=== PATIENT | male | born 1940 | race Caucasian/White ===

== ENCOUNTER 2016-07-10 12:19 | Emergency (ER) | payer BC ==
[~2016-07-10] VITALS: Ht 180.3 cm; Wt 79.4 kg
[2016-07-10] MEDS ORDERED: ACETAMINOPHEN 500 MG TAB PO ONE (13:30)
[2016-07-10] MEDS ORDERED: SODIUM CHLORIDE 0.9% 1,000 ML IV ONE (13:45)
[2016-07-10 13:49] LABS: Basophils # (auto) 0 uL; Basophils % (auto) 0.3 % (0.0-2.0); Eosinophils # (auto) 0.3 uL; Eosinophils % (auto) 7.2 % (0.0-7.0); Hematocrit 26.2 % (41.0-53.0); Hemoglobin 9.4 g/dL (13.5-17.5); Lymphocytes # (auto) 0.3 uL; Lymphocytes % (auto) 9.4 % (10.0-50.0); Mean Corpuscular Hemoglobin 33.4 pg (28.0-32.0); Mean Corpuscular Hgb Conc. 35.7 g/dL (32.0-36.0); Mean Corpuscular Volume 93.5 fL (80.0-100.0); Mean Platelet Volume 6.6 fL (7.4-10.4); Monocytes # (auto) 0.5 uL; Monocytes % (auto) 13.6 % (0.0-12.0); Neutrophils # (auto) 2.6 uL; Neutrophils % (auto) 69.5 % (37.0-80.0); Platelet Count (auto) 299 10^3/uL (140-450); White Blood Cell 3.7 10^3/uL (4.4-10.8)
[2016-07-10 13:55] LABS: Albumin 3.5 g/dL (3.4-5.0); BUN/Creatinine Ratio 21.3; Potassium 4.7 mmol/L (3.5-5.1)
[2016-07-10 14:03] LABS: Bilirubin, Total 0.4 mg/dL (0.2-1.0); Total Protein 7.3 g/dL (6.4-8.2)
[2016-07-10 16:29] VITALS: BP 150/72
== END 2016-07-10 16:29 | disposition home or self-care (01) ==
LOC: EDBD 12:19 → ER 12:21
DX: S80.12XA Contusion of left lower leg, initial encounter (principal); S30.1XXA Contusion of abdominal wall, initial encounter; S50.02XA Contusion of left elbow, initial encounter; S00.12XA Contusion of left eyelid and periocular area, initial encounter; D64.9 Anemia, unspecified; M32.9 Systemic lupus erythematosus, unspecified; I12.9 Hypertensive chronic kidney disease with stage 1 through stage 4 chronic kidney disease, or unspecified chronic kidney disease; N18.9 Chronic kidney disease, unspecified; E11.22 Type 2 diabetes mellitus with diabetic chronic kidney disease; E78.5 Hyperlipidemia, unspecified; W01.0XXA Fall on same level from slipping, tripping and stumbling without subsequent striking against object, initial encounter; Y93.89 Activity, other specified; Y92.89 Other specified places as the place of occurrence of the external cause; Y99.8 Other external cause status; Z88.0 Allergy status to penicillin; Z90.49 Acquired absence of other specified parts of digestive tract; Z95.1 Presence of aortocoronary bypass graft
CPT/HCPCS: 36415; 71010; 73080; 73502; 73552; 74176; 80053; 84484; 85025; 93005; 96360; 96361; 99285; J7030

== ENCOUNTER 2018-02-12 22:32 | Inpatient (IN) | payer BC, OTHER ==
[~2018-02-12] VITALS: Ht 180.3 cm; Wt 84.0 kg
[~2018-02-12 22:32] MED LIST: ASPI1TAB19 PO; CALC667T2 PO; CAR125T PO; CARB200T4 PO; FERR18TA2 PO; FURO40TA PO; INSUINJ IJ; INSUINJ2 SC; LEV100T PO; MINO10TA2 PO; OMEG300C7 PO; PROCRIT; RAMI2.5C33 PO; ROSU40TA PO
[2018-02-13 00:19] LABS: Basophils # (auto) 0 uL; Basophils % (auto) 0.6 % (0.0-2.0); Eosinophils # (auto) 0.1 uL; Eosinophils % (auto) 3.3 % (0.0-7.0); Hematocrit 24.9 % (41.0-53.0); Hemoglobin 8.5 g/dL (13.5-17.5); Lymphocytes # (auto) 0.1 uL; Lymphocytes % (auto) 4.2 % (10.0-50.0); Mean Corpuscular Hemoglobin 33.5 pg (28.0-32.0); Mean Corpuscular Volume 98.7 fL (80.0-100.0); Monocytes # (auto) 0.5 uL; Monocytes % (auto) 16.4 % (0.0-12.0); Neutrophils # (auto) 2.4 uL; Neutrophils % (auto) 75.5 % (37.0-80.0); Platelet Count (auto) 264 10^3/uL (140-450); Red Blood Cells 2.53 10^6/uL (4.5-5.90); Red Cell Distribution Width 13.2 % (11.8-14.3); White Blood Cell 3.1 10^3/uL (4.4-10.8)
[2018-02-13 00:25] LABS: INR 1.06 (0.9-1.15); Partial Thromboplastin Time 30.1 sec (23.78-33.04); Prothrombin Time 11.3 sec (9.27-12.13)
[2018-02-13 00:28] LABS: Alanine Aminotransferase 33 U/L (16-61); Albumin 3.6 g/dL (3.4-5.0); Anion Gap 12 (5-15); Aspartate Aminotransferase 35 U/L (15-37); BUN/Creatinine Ratio 25.5; Calcium 8.5 mg/dL (8.5-10.1); Carbon Dioxide 24 mmol/L (21-32); Chloride 97 mmol/L (98-107); GFR African American 24 mL/min; GFR Non-African American 20 mL/min; Glucose 148 mg/dL (74-106); Magnesium 3.4 mg/dL (1.6-2.6); Potassium 3.6 mmol/L (3.5-5.1); Sodium 133 mmol/L (136-145)
[2018-02-13 00:31] LABS: Blood Urea Nitrogen 82 mg/dL (7-18)
[2018-02-13 00:35] LABS: Alkaline Phosphatase 105 U/L (45-117); Bilirubin, Total 0.5 mg/dL (0.2-1.0); Total Protein 7.1 g/dL (6.4-8.2)
[2018-02-13] MEDS ORDERED: ENALAPRILAT 1.25 MG/ML-1ML VIAL IV ONE (01:15)
[2018-02-13] MEDS ORDERED: DEXTROSE (50%) 50ML SYRG IV PRN (03:45)
[2018-02-13] MEDS ORDERED: hydrALAZINE HCL 25 MG TAB PO PRN (03:45)
[2018-02-13] MEDS ORDERED: ACETAMINOPHEN 500 MG TAB PO PRN (03:45)
[2018-02-13] MEDS ORDERED: FUROSEMIDE 40 MG/4 ML VIAL IV ONE ×2 (03:45→15:15)
[2018-02-13] MEDS ORDERED: ONDANSETRON HCL 4 MG/2 ML VIAL IV PRN (03:45)
[2018-02-13 05:07] VITALS: BP 129/60
[2018-02-13] MEDS: LEVOTHYROXINE SODIUM 100 MCG TAB PO SCH (06:59)
[2018-02-13] MEDS: InsuLIN REG 1unit/0.01ml Soln (100units/ml) SC SCH ×4 (07:00→22:00)
[2018-02-13] MEDS: ACCU-CHEK COMFORT CURVE STRIP VI SCH ×4 (07:03→23:01)
[2018-02-13 08:06] LABS: Red Blood Cells 2.25 10^6/uL (4.5-5.90); White Blood Cell 2.3 10^3/uL (4.4-10.8)
[2018-02-13 08:08] LABS: Hematocrit 22.3 % (41.0-53.0); Hemoglobin 7.6 g/dL (13.5-17.5); Mean Corpuscular Hgb Conc. 34.3 g/dL (32.0-36.0); Mean Corpuscular Volume 99.1 fL (80.0-100.0); Platelet Count (auto) 225 10^3/uL (140-450); Red Cell Distribution Width 13.5 % (11.8-14.3)
[2018-02-13 08:21] LABS: Band Neutrophils % (manual) 0; Basophils % (manual) 0 (0.0-2.0); Blast Cells 0; Metamyelocytes % 0; Myelocytes % 0; Promyelocytes % 0; Reactive Lymphocytes 0
[2018-02-13 08:22] LABS: BUN/Creatinine Ratio 24.5; Calcium 8.2 mg/dL (8.5-10.1); Potassium 3.5 mmol/L (3.5-5.1)
[2018-02-13] MEDS: CALCIUM ACETATE 667 MG CAP PO SCH ×3 (08:28→18:13)
[2018-02-13 09:00] VITALS: BP 114/44
[2018-02-13] MEDS ORDERED: FUROSEMIDE 40 MG/4 ML VIAL IV SCH (10:00)
[2018-02-13] MEDS: CARVEDILOL 12.5 MG TAB PO SCH ×2 (10:46→22:00)
[2018-02-13] MEDS: ASPirin-EC 81 mg tab PO SCH (10:46)
[2018-02-13 11:13] LABS: Eosinophils % (manual) 1 (0-7); Lymphocytes % (manual) 9 (10.0-50.0); Monocytes % (manual) 4 (0-12)
[2018-02-13 12:55] VITALS: BP 114/52
[2018-02-13 16:49] VITALS: BP 140/50
[2018-02-13] MEDS: FUROSEMIDE 40 MG/4 ML VIAL IV SCH (18:00)
[2018-02-13 21:18] LABS: Urine Bacteria FEW /hpf (None Seen); Urine Blood Negative /uL (Negative); Urine Hyaline Cast FEW /lpf (0 - 2); Urine Specific Gravity 1.011 (1.001-1.035); Urine WBC <1 /hpf (0 - 3)
[2018-02-13 21:32] LABS: Protein, Urine 42.2 mg/dL (0.0-11.9)
[2018-02-13 22:00] VITALS: BP 148/69
[2018-02-14 05:00] VITALS: BP 124/42
[2018-02-14] MEDS: ACCU-CHEK COMFORT CURVE STRIP VI SCH ×2 (06:37→11:30)
[2018-02-14] MEDS: LEVOTHYROXINE SODIUM 100 MCG TAB PO SCH (06:37)
[2018-02-14] MEDS: FUROSEMIDE 40 MG/4 ML VIAL IV SCH (06:37)
[2018-02-14] MEDS: InsuLIN REG 1unit/0.01ml Soln (100units/ml) SC SCH ×2 (06:38→11:30)
[2018-02-14 06:40] LABS: Hematocrit 25.1 % (41.0-53.0); Hemoglobin 8.6 g/dL (13.5-17.5); Mean Corpuscular Hemoglobin 33.7 pg (28.0-32.0); Mean Corpuscular Hgb Conc. 34.4 g/dL (32.0-36.0); Mean Corpuscular Volume 97.9 fL (80.0-100.0); Platelet Count (auto) 256 10^3/uL (140-450); Red Blood Cells 2.56 10^6/uL (4.5-5.90); Red Cell Distribution Width 13.2 % (11.8-14.3); White Blood Cell 2.2 10^3/uL (4.4-10.8)
[2018-02-14 06:48] LABS: Band Neutrophils % (manual) 0; Basophils % (manual) 0 (0.0-2.0); Blast Cells 0; Metamyelocytes % 0; Myelocytes % 0; Promyelocytes % 0; Reactive Lymphocytes 0
[2018-02-14 06:51] LABS: Potassium 3.5 mmol/L (3.5-5.1)
[2018-02-14 06:58] LABS: BUN/Creatinine Ratio 24.5; Calcium 8.2 mg/dL (8.5-10.1); Phosphorus 4.4 mg/dL (2.5-4.90); Uric Acid 10.3 mg/dL (3.5-7.2)
[2018-02-14 06:59] LABS: % Iron Saturation 24.6 % (20-55)
[2018-02-14 08:23] LABS: Eosinophils % (manual) 10 (0-7); Lymphocytes % (manual) 14 (10.0-50.0); Monocytes % (manual) 19 (0-12)
[2018-02-14 09:20] VITALS: BP 152/65
[2018-02-14] MEDS: CALCIUM ACETATE 667 MG CAP PO SCH ×2 (09:35→12:00)
[2018-02-14] MEDS: ASPirin-EC 81 mg tab PO SCH (09:36)
[2018-02-14] MEDS: CARVEDILOL 12.5 MG TAB PO SCH (09:36)
[2018-02-14 11:59] VITALS: BP 137/62
== END 2018-02-14 12:20 | disposition home or self-care (01) | DRG 682 ==
LOC: ER 22:32 → TELE 02-13 03:39 → WEST WING 02-13 04:31 → TELE-WESTW 02-13 11:58
PROVIDERS: ADMIT Nurse Practitioner Family; ATTEND Internal Medicine Geriatric Medicine
DX: N17.0 Acute kidney failure with tubular necrosis (principal); I50.43 Acute on chronic combined systolic (congestive) and diastolic (congestive) heart failure; I13.2 Hypertensive heart and chronic kidney disease with heart failure and with stage 5 chronic kidney disease, or end stage renal disease; N39.0 Urinary tract infection, site not specified; N18.6 End stage renal disease; E11.22 Type 2 diabetes mellitus with diabetic chronic kidney disease; I25.10 Atherosclerotic heart disease of native coronary artery without angina pectoris; E78.5 Hyperlipidemia, unspecified; D64.9 Anemia, unspecified; I70.0 Atherosclerosis of aorta; Z79.82 Long term (current) use of aspirin; Z82.0 Family history of epilepsy and other diseases of the nervous system; Z83.3 Family history of diabetes mellitus; Z95.1 Presence of aortocoronary bypass graft; Z90.49 Acquired absence of other specified parts of digestive tract
CPT/HCPCS: 36415; 71045; 80048; 80053; 81001; 82570; 82962; 83036; 83540; 83550; 83735; 83880; 84100; 84156; 84300; 84443; 84484; 84550; 85007; 85025; 85027; 85610; 85730; 93005; 94761; 96374; 96375; G0378; J1815

== ENCOUNTER 2018-12-26 12:32 | Inpatient (IN) | payer OTHER ==
[~2018-12-26] VITALS: Ht 180.3 cm; Wt 88.5 kg
[~2018-12-26 12:32] MED LIST changes: +FURO1TAB31 PO; -FURO40TA PO
[2018-12-26 13:00] LABS: Basophils # (auto) 0 uL; Basophils % (auto) 0.3 % (0.0-2.0); Eosinophils # (auto) 0.1 uL; Hematocrit 25.8 % (41.0-53.0); Lymphocytes # (auto) 0.3 uL; Monocytes # (auto) 0.4 uL
[2018-12-26 13:01] LABS: Eosinophils % (auto) 2.1 % (0.0-7.0); Hemoglobin 8.8 g/dL (13.5-17.5); Lymphocytes % (auto) 4.5 % (10.0-50.0); Mean Corpuscular Hemoglobin 35.8 pg (28.0-32.0); Mean Corpuscular Hgb Conc. 34.1 g/dL (32.0-36.0); Mean Corpuscular Volume 104.9 fL (80.0-100.0); Neutrophils # (auto) 5.3 uL; Neutrophils % (auto) 86.1 % (37.0-80.0); Platelet Count (auto) 215 10^3/uL (140-450); Red Blood Cells 2.46 10^6/uL (4.5-5.90); Red Cell Distribution Width 15.1 % (11.8-14.3); White Blood Cell 6.2 10^3/uL (4.4-10.8)
[2018-12-26 13:16] LABS: Albumin 3.3 g/dL (3.4-5.0); Anion Gap 7 (5-15); Blood Urea Nitrogen 32 mg/dL (7-18); Calcium 8.4 mg/dL (8.5-10.1); Carbon Dioxide 28 mmol/L (21-32); Chloride 100 mmol/L (98-107); Glucose 91 mg/dL (74-106); INR 1.13 (0.9-1.15); Partial Thromboplastin Time 34.2 sec (23.64-32.05); Potassium 4.3 mmol/L (3.5-5.1); Sodium 135 mmol/L (136-145)
[2018-12-26 13:22] LABS: Alanine Aminotransferase 29 U/L (16-61); Alkaline Phosphatase 206 U/L (45-117); Aspartate Aminotransferase 45 U/L (15-37); BUN/Creatinine Ratio 8.8; Bilirubin, Total 0.7 mg/dL (0.2-1.0); GFR African American 21 mL/min; GFR Non-African American 17 mL/min; Total Protein 7.7 g/dL (6.4-8.2)
[2018-12-26] MEDS ORDERED: IPRATROPIUM BROM 0.5 MG/2.5ML INH SOL NEB PRN (15:00)
[2018-12-26] MEDS ORDERED: ONDANSETRON HCL 4 MG/2 ML VIAL IV PRN (15:00)
[2018-12-26] MEDS ORDERED: HYDROcodone-ACET 5/325MG TAB PO PRN (15:00)
[2018-12-26] MEDS ORDERED: ACETAMINOPHEN 500 MG TAB PO PRN (15:00)
[2018-12-26] MEDS ORDERED: MORPHINE SULF INJ 2 MG/ML SYRINGE 1ML IV PRN ×2 (15:00)
[2018-12-26] MEDS ORDERED: NITROGLYCERIN 0.4 MG SL TAB SL PRN (15:00)
[2018-12-26] MEDS ORDERED: ALBUTEROL SULF 2.5 MG/0.5ML(0.5%) NEB SOLN NEB PRN (15:00)
[2018-12-26] MEDS ORDERED: DEXTROSE (50%) 50ML SYRG IV PRN (15:00)
[2018-12-26 17:00] VITALS: BP 155/71
[2018-12-26] MEDS: InsuLIN REG 1unit/0.01ml Soln (100units/ml) SC SCH ×2 (17:00→21:41)
[2018-12-26] MEDS: CALCIUM ACETATE 667 MG CAP PO SCH ×2 (18:26→21:41)
[2018-12-26] MEDS: ACCU-CHEK COMFORT CURVE STRIP VI SCH ×2 (18:26→21:41)
--- NOTE | 2018-12-26 18:47 | NUR ---
Telemetry admit from [facility]ICLAUDET[facility] Liza admitted to Telemetry unit after SBAR received. Patient oriented to KIRIT knox RN, unit, room, bed, and unit policies regarding patient care and visiting hours. Patient now on continuous telemetry monitoring, tele box #[id number] and telemetry reading on arrival to unit is SR in the 60's. Patient weighed by bedscale and encouraged to call if they need something. All questions and concerns addressed, patient verbalized understanding. Addendum: 12/26/18 at 1849 by KIRIT CLARK RN Actual time for [id number]
--- NOTE | 2018-12-26 19:15 | NUR ---
PATIENT IS ALERT AND ORIENTED X4, ANSWERS IN COMPLETE SENTENCES AND MAKES APPROPRIATE EYE CONTACT. PATIENT STATES THAT HE WOULD LIKE TO REPLACE THE BAND-AID WHICH WAS PLACED AT HIS DIALYSIS BECAUSE THE BAND-AID HAS BLOOD STAINS. BAND AID REAPPLIED TO SITE. SKIN TEAR TO RIGHT UPPER ARM ALSO RE DRESSED WITH BAND-AID. NO S/SX OF DISTRESS, SOB OR PAIN. WILL CONTINUE TO MONITOR Q1H AND PRN.
[2018-12-26 20:15] VITALS: BP 109/40
[2018-12-26 21:00] VITALS: BP 109/40
[2018-12-27] VITALS (7 sets, daily range): BP systolic 109–145; BP diastolic 40–68
[2018-12-27] MEDS: CALCIUM ACETATE 667 MG CAP PO SCH ×3 (02:24→10:00)
--- NOTE | 2018-12-27 03:59 | NUR ---
[facility]SA SWAB SENT TO LAB
--- NOTE | 2018-12-27 04:15 | NUR ---
PT SEEN RESTING IN BED ON RA, SPO2 92%, BS CLEAR AND DIMINISHED, PRN NEB TX NOT GIVEN AT THIS TIME.
[2018-12-27 05:53] LABS: Basophils # (auto) 0 uL; Eosinophils # (auto) 0.2 uL; Hemoglobin 8.9 g/dL (13.5-17.5); Lymphocytes # (auto) 0.4 uL; Monocytes # (auto) 0.6 uL
[2018-12-27 05:57] LABS: Basophils % (auto) 0.6 % (0.0-2.0); Eosinophils % (auto) 3.3 % (0.0-7.0); Hematocrit 26.2 % (41.0-53.0); Lymphocytes % (auto) 7.4 % (10.0-50.0); Mean Corpuscular Hemoglobin 35.6 pg (28.0-32.0); Mean Corpuscular Hgb Conc. 33.8 g/dL (32.0-36.0); Mean Corpuscular Volume 105.2 fL (80.0-100.0); Monocytes % (auto) 10.8 % (0.0-12.0); Neutrophils # (auto) 4.4 uL; Neutrophils % (auto) 77.9 % (37.0-80.0); Platelet Count (auto) 249 10^3/uL (140-450); Red Blood Cells 2.49 10^6/uL (4.5-5.90); Red Cell Distribution Width 15.5 % (11.8-14.3); White Blood Cell 5.6 10^3/uL (4.4-10.8)
[2018-12-27 06:07] LABS: Albumin 3.4 g/dL (3.4-5.0); BUN/Creatinine Ratio 8.6; Calcium 8.7 mg/dL (8.5-10.1)
[2018-12-27 06:12] LABS: Bilirubin, Total 0.8 mg/dL (0.2-1.0); Total Protein 7.4 g/dL (6.4-8.2)
[2018-12-27] MEDS: ACCU-CHEK COMFORT CURVE STRIP VI SCH (06:37)
[2018-12-27] MEDS: InsuLIN REG 1unit/0.01ml Soln (100units/ml) SC SCH (06:37)
[2018-12-27] MEDS ORDERED: LEVOTHYROXINE SODIUM 100 MCG TAB PO SCH (07:00)
--- NOTE | 2018-12-27 07:05 | NUR ---
PRN MN TX NOT INDICATED AT THIS TIME. PT IS AWAKE, ALERT AND ORIENTED. PT ON RA, 95% O2 SATS, HR 64 BPM, RR18 BPM, SKIN IS DRY AND WARM TO THE TOUCH. RESPIRATION IS EVEN AND REGULAR. NO SCUTE DISTRESS NOTED. PT OBSTRUCTED TO CALL IF MN TX IS INDICATED. PT VERBALIZED UNDERSTANDING.
--- NOTE | 2018-12-27 07:30 | NUR ---
ENDORSED PATIENT CARE TO DAY SHIFT NURSE MANDI GASTON. PATIENT IS RESTING IN BED. NO S/SX OF DISTRESS, SOB OR PAIN. REACTOR KETTLE OPERATOR READS SR 64. BBB AND AV BLOCK. DAY SHIFT NURSE IS AWARE OF ECG CHANGES. UPDATED 12 ECG IS CHARTED IN HARD CHART; HOSPITALIST JANEL AWARE.
[2018-12-27] MEDS ORDERED: FUROSEMIDE 40 MG TAB PO SCH (10:00)
[2018-12-27] MEDS ORDERED: FAMOTIDINE 20 MG TAB PO SCH (10:00)
[2018-12-27] MEDS ORDERED: ASPirin-EC 81 mg tab PO SCH (10:00)
[2018-12-27] MEDS ORDERED: RAMIPRIL 2.5 MG CAP PO SCH (10:00)
[2018-12-27] MEDS ORDERED: Rosuvastatin Calcium (Crestor) 40MG TABLET PO SCH (10:00)
--- NOTE | 2018-12-27 10:45 | NUR ---
WOUND CARE NOTE: Wound care in to see patient per wound care request regarding "skin tear to Rt Upper Arm and Rt. forearm" that are noted present on admission. Bedside nurse took photograph of patient's wounds upon admission for reference. Patient is 78 years old male with admitting diagnosis of CHF. Patient is resting in bed in Rm. 277A. He's awake, alert, and oriented. Patient is ambulatory and self turn and reposition. His José Luis score is 18. He's in no stated pain at this time. Patient's at bedside. Patient noted with ecchymosis, multi dry intact scabs to bilateral arm and large (7x3cm) skin tear to Rt shoulder/arm. Patient and his reported that scabs and skin tears are due to previous fall at home. Wound is red with dry scab at edges, minimal serosanguineous drainage noted, no odor noted. Cleansed wound with NS,patted dry with gauze, applied Thera honey gel and covered with Opti foam gentle dressing. Large intact ecchymosis also noted to patient's R buttock which reported from previous fall also. No pressure injury noted. Patient tolerated well. Patient's and family wound care education given, verbalized understanding. No further wound care monitoring needed at this time. RECOMMENDATION: Dressing change to Rt upper arm/shoulder wound per Md order.
== END 2018-12-27 12:55 | disposition home or self-care (01) | DRG 91 ==
LOC: EDUNIT# 12:32 → EDBD 12:32 → ER 12:32 → TELE 12:33 → TELE-WESTW 16:52
PROVIDERS: ADMIT Nurse Practitioner Acute Care; ATTEND Internal Medicine
DX: R25.2 Cramp and spasm (principal); N18.6 End stage renal disease; I13.2 Hypertensive heart and chronic kidney disease with heart failure and with stage 5 chronic kidney disease, or end stage renal disease; I25.810 Atherosclerosis of coronary artery bypass graft(s) without angina pectoris; I44.0 Atrioventricular block, first degree; E11.51 Type 2 diabetes mellitus with diabetic peripheral angiopathy without gangrene; E11.22 Type 2 diabetes mellitus with diabetic chronic kidney disease; T42.6X5A Adverse effect of other antiepileptic and sedative-hypnotic drugs, initial encounter; D63.8 Anemia in other chronic diseases classified elsewhere; I50.9 Heart failure, unspecified; E78.5 Hyperlipidemia, unspecified; Z99.2 Dependence on renal dialysis; Z79.4 Long term (current) use of insulin; Z79.82 Long term (current) use of aspirin; Z79.899 Other long term (current) drug therapy; Z82.0 Family history of epilepsy and other diseases of the nervous system; Z83.3 Family history of diabetes mellitus; Z95.1 Presence of aortocoronary bypass graft; Z88.0 Allergy status to penicillin; Z90.49 Acquired absence of other specified parts of digestive tract; Y92.89 Other specified places as the place of occurrence of the external cause
CPT/HCPCS: 36415; 71045; 72192; 80053; 82962; 83036; 83880; 84484; 85025; 85610; 85730; 87081; 93005; 93306; 93970; 99291; G0378; J1815

== ENCOUNTER → 2019-06-03 | Emergency (ER) | payer OTHER ==
[~2019-06-03] VITALS: Ht 175.3 cm; Wt 77.1 kg
[~2019-06-03] MED LIST changes: +MORPHINE SULFATE 10 MG/ML INJ 1ML SDV IV ONE; +ONDANSETRON HCL 4 MG/2 ML VIAL IV ONE
[2019-06-03 20:08] LABS: Basophils # (auto) 0.1 10 ^3/uL (0-0.2); Basophils % (auto) 0.7 % (0.0-2.0); Eosinophils # (auto) 0.3 10 ^3/uL (0-0.8); Eosinophils % (auto) 3.8 % (0.0-7.0); Hemoglobin 9.4 g/dL (13.5-17.5); Lymphocytes # (auto) 0.6 10 ^3/uL (0.4-5.4); Lymphocytes % (auto) 8.2 % (10.0-50.0); Mean Corpuscular Hemoglobin 35.1 pg (28.0-32.0); Mean Corpuscular Hgb Conc. 32.5 g/dL (32.0-36.0); Mean Corpuscular Volume 107.7 fL (80.0-100.0); Monocytes # (auto) 0.8 10 ^3/uL (0-1.3); Neutrophils # (auto) 5.4 10 ^3/uL (1.6-8.6); Neutrophils % (auto) 76.3 % (37.0-80.0); Platelet Count (auto) 269 10^3/uL (140-450); Red Blood Cells 2.69 10^6/uL (4.5-5.90); White Blood Cell 7.1 10^3/uL (4.4-10.8)
[2019-06-03 20:24] LABS: Albumin 3.4 g/dL (3.4-5.0); Calcium 8.8 mg/dL (8.5-10.1); Potassium 3.8 mmol/L (3.5-5.1)
[2019-06-03 20:30] LABS: BUN/Creatinine Ratio 8.2; Bilirubin, Total 0.5 mg/dL (0.2-1.0); Total Protein 7.5 g/dL (6.4-8.2)
[2019-06-03 20:37] LABS: INR 1.22 (0.9-1.15); Partial Thromboplastin Time 33.3 sec (23.64-32.05)
[2019-06-03 22:38] VITALS: BP 124/41
== END | disposition home or self-care (01) ==
LOC: EDUNIT# 18:44 → ER 18:47 → EDBD 18:47
DX: S42.291A Other displaced fracture of upper end of right humerus, initial encounter for closed fracture (principal); S83.91XA Sprain of unspecified site of right knee, initial encounter; I25.10 Atherosclerotic heart disease of native coronary artery without angina pectoris; E78.5 Hyperlipidemia, unspecified; I13.2 Hypertensive heart and chronic kidney disease with heart failure and with stage 5 chronic kidney disease, or end stage renal disease; E11.22 Type 2 diabetes mellitus with diabetic chronic kidney disease; N18.6 End stage renal disease; I50.9 Heart failure, unspecified; Z79.899 Other long term (current) drug therapy; Z88.0 Allergy status to penicillin; W19.XXXA Unspecified fall, initial encounter; Y93.89 Activity, other specified; Y92.89 Other specified places as the place of occurrence of the external cause; Y99.0 Civilian activity done for income or pay
CPT/HCPCS: 36415; 73030; 73200; 73560; 80053; 84484; 85025; 85610; 85730; 96374; 96375; 99285; J2270; J2405